=== PATIENT | female | born 1990 | race Caucasian/White ===

== ENCOUNTER 2016-07-10 12:09 | Emergency (ER) | payer MEDICAID ==
--- NOTE | 2016-07-10 12:29 | Emergency Department Record ---
History of Present Illness - General Chief complaint: Female Urogenital Problem Stated complaint: POSSIBLE STD Time Seen by Provider: 07/10/16 12:21 Source: Patient Mode of Arrival: Ambulatory - History of Present Illness Initial comments: 25 yo female presents with a concern about a Herpes or hep C exposure. She is asymptomatic. She does not know with any certainty if the other person has current or past disease. No personal STD history. No discharge or bleeding. no lesions. MD Complaint: Possible STD Onset/Timin -: Days(s) Location: Other (No symptoms) Severity: Mild Quality: Other Improves with: None Worsens with: None Associated Symptoms: Denies other symptoms - Related Data Home Medications Medication Instructions Recorded Confirmed Last Taken No Home Med [NO HOME MEDS] 07/10/16 07/10/16 Unknown Allergies Allergy/AdvReac Type Severity Reaction Status Date / Time No Known Drug Allergies Allergy Verified 06/24/15 12:15 Travel Screening - Travel/Exposure Within Last 30 Days Have you traveled within the last 30 days?: No Review of Systems Constitutional: Denies: Chills, Fever, Malaise, Weakness Eyes: Denies: Eye discharge ENT: Denies: Congestion, Throat pain Respiratory: Denies: Cough Cardiovascular: Denies: Chest pain, Palpitations, Syncope Endocrine: Denies: Fatigue Gastrointestinal: Denies: Abdominal pain, Diarrhea, Nausea, Vomiting Genitourinary: Denies: Discharge, Dysuria, Hematuria, Urgency Musculoskeletal: Denies: Arthralgia, Back pain, Myalgia Skin: Denies: Bruising, Change in color, Rash Past Medical History - SOCIAL HISTORY Smoking Status: Current every day smoker Alcohol Use: None Drug Use: None - RESPIRATORY Hx Respiratory Disorders: No - CARDIOVASCULAR Hx Cardio Disorders: No - NEURO Hx Neuro Disorders: No - GI Hx GI Disorders: No - Hx Genitourinary Disorders: No - ENDOCRINE Hx Endocrine Disorders: No Hx Diabetes: No Hx Thyroid Disease: No - MUSCULOSKELETAL Hx Musculoskeletal Disorders: No - PSYCH Hx Psych Problems: Yes Hx Anxiety: Yes Hx Depression: Yes - HEMATOLOGY/ONCOLOGY Hx Hematology/Oncology Disorders: No Family Medical History Any Significant Family History?: No Physical Exam - General General Appearance: Alert, Oriented x3, Cooperative, No acute distress - Head Head exam: Normal inspection - Eye Eye exam: Normal appearance, PERRL. negative: Conjunctival injection - ENT ENT exam: Normal exam Ear exam: Normal external inspection Nasal Exam: Normal inspection Mouth exam: Normal external inspection - Neck Neck exam: Normal inspection - Respiratory Respiratory exam: Normal lung sounds bilaterally. negative: Respiratory distress - Cardiovascular Cardiovascular Exam: Regular rate, Normal rhythm, Normal heart sounds - GI/Abdominal GI/Abdominal exam: Soft. negative: Tenderness - Rectal Rectal exam: Deferred - exam: Normal bimanual exam, Normal speculum exam. negative: Abnormal external exam, Adnexal mass (L), Adnexal mass (R), Adnexal tenderness (L), Adnexal tenderness (R), Cervical discharge, cervical motion tenderness, Vaginal bleeding, Vaginal discharge, Vaginal erythema - Extremities Extremities exam: Normal inspection - Back Back exam: Denies: CVA tenderness (R), CVA tenderness (L) - Neurological Neurological exam: Alert, Oriented X3. negative: Altered - Psychiatric Psychiatric exam: Normal affect, Normal mood. negative: Agitated, Anxious - Skin Skin exam: Dry, Intact, Normal color, Warm Course Vital Signs 07/10/16 12:13 Temperature 99.2 F Pulse Rate 93 H Respiratory 18 Rate Blood Pressure 109/71 Pulse Ox 98 - Reevaluation(s) Reevaluation #1: Wet prep is negative DC with instructions for possible STD exposure 07/10/16 13:25 Disposition Disposition: Discharge Clinical Impression: Possible exposure to STD Disposition: Home, Self-Care Condition: (1) Good Instructions: Sexually Transmitted Diseases (ED) Additional Instructions: you have cultures that will result in about 2-3 days return if you have pain, fever or concerns no unprotected sex without a condom until all your results are available follow up with your doctor for Hepatitis and HIV testing Forms: Patient Portal Access Time of Disposition: 13:09
[2016-07-10] MEDS ORDERED: CEFTRIAXONE 250 MG VIAL IM ONE (12:31)
[2016-07-10] MEDS ORDERED: AZITHROMYCIN 500 MG TABLET PO ONE (12:31)
[2016-07-10 13:11] LABS: URINE APPEARANCE CLEAR; URINE BILIRUBIN NEGATIVE (NEGATIVE); URINE BLOOD NEGATIVE (NEGATIVE); URINE COLOR YELLOW; URINE GLUCOSE (UA) NEGATIVE (NEGATIVE); URINE KETONE NEGATIVE (NEGATIVE); URINE LEUKOCYTE ESTERASE NEGATIVE (NEGATIVE); URINE NITRITE NEGATIVE (NEGATIVE); URINE PROTEIN NEGATIVE (NEGATIVE); URINE UROBILINOGEN 0.2 E.U./dL (0.20 - 1.00)
[2016-07-10 13:14] LABS: HCG,QUALITATIVE URINE NEGATIVE (NEGATIVE)
[2016-07-11 20:19] LABS: SPECIMEN TYPE Vaginal (())
[2016-07-13 15:15] LABS: GC SPECIMEN TYPE Vaginal (())
== END 2016-07-10 13:55 | disposition home or self-care (01) ==
LOC: ER 12:09
DX: Z20.2 Contact with and (suspected) exposure to infections with a predominantly sexual mode of transmission (principal)
CPT/HCPCS: 99284 ×2; 96372; 81003; 81025; Q0111; J0696; 87210

== ENCOUNTER 2016-12-22 19:03 | Emergency (ER) | payer MEDICAID ==
[2016-12-22] MEDS: LORAZEPAM 0.5 MG TABLET PO ONE (19:34)
--- NOTE | 2016-12-22 19:38 | Emergency Department Record ---
History of Present Illness - General Chief Complaint: Crisis Evaluation Stated Complaint: ANXIETY,DEPRESSION Time Seen by Provider: 12/22/16 19:31 Source: Patient Mode of Arrival: Ambulatory Limitations: No limitations - History of Present Illness Initial Comments: 26 yo female presents to for possible anxiety reaction/panic attack. Patient reports increased anxiety and depression over the past 1.5-2 weeks, reports that she started taking Celexa this morning (11:00 AM). Patient reports taking Celexa 3 years ago without side affects. Patient reports that she felt very shaky this evening, anxious, tearful, and had flashes of self harm that the patient reports have now resolved. Patient denies any thoughts of harming herself or suicidal thoughts currently on examination. Patient denies health problems at her baseline. MD Complaint: Feels depressed, Other (anxious) Onset/Timin -: Days(s) Associated Psychiatric Symptoms: Depression, Racing thoughts, Other History of same: Yes Quality: Intermittent Improves With: Therapy Context: New medication(s), Significant life stressor Associated Symptoms: Denies other symptoms Treatments Prior to Arrival: None - [place] Coma Scale Eye Response: (4) Open spontaneously Motor Response: (6) Obeys commands Verbal Response: (5) Oriented [place] Total: 15 - Related Data Home Medications Medication Instructions Recorded Confirmed Last Taken Citalopram Hydrobromide 20 mg PO DAILY 12/22/16 12/22/16 12/22/16 [Citalopram HBr] Previous Rx's Medication Instructions Recorded Lorazepam [Ativan] 0.5 mg PO Q6H PRN #5 tablet 12/22/16 Allergies Allergy/AdvReac Type Severity Reaction Status Date / Time No Known Drug Allergies Allergy Verified 06/24/15 12:15 Review of Systems Constitutional: Denies: Chills, Fever, Malaise, Night sweats Eyes: Denies: Eye discharge, Eye pain ENT: Denies: Congestion, Ear pain, Epistaxis Respiratory: Denies: Cough, Dyspnea Cardiovascular: Denies: Chest pain, Dyspnea on exertion Endocrine: Denies: Fatigue, Heat or cold intolerance Gastrointestinal: Denies: Abdominal pain, Nausea, Vomiting Genitourinary: Denies: Incontinence, Retention Musculoskeletal: Denies: Arthralgia, Back pain Skin: Denies: Bruising, Change in color Neurological: Denies: Abnormal gait, Confusion, Headache, Seizure Psychiatric: Denies: Anxiety Hematological/Lymphatic: Denies: Anemia, Blood Clots Past Medical History - SOCIAL HISTORY Smoking Status: Current every day smoker Alcohol Use: None Drug Use: None - RESPIRATORY Hx Respiratory Disorders: No - CARDIOVASCULAR Hx Cardio Disorders: No - NEURO Hx Neuro Disorders: No - GI Hx GI Disorders: No - Hx Genitourinary Disorders: No - ENDOCRINE Hx Endocrine Disorders: No Hx Diabetes: No Hx Thyroid Disease: No - MUSCULOSKELETAL Hx Musculoskeletal Disorders: No - PSYCH Hx Psych Problems: Yes Hx Anxiety: Yes Hx Depression: Yes - HEMATOLOGY/ONCOLOGY Hx Hematology/Oncology Disorders: No Family Medical History Any Significant Family History?: No Physical Exam - General General Appearance: Alert, Oriented x3, Cooperative, Mild distress, Anxious, Other (mildly tearful on examination) Limitations: No limitations - Head Head exam: Atraumatic, Normocephalic, Normal inspection Head exam detail: negative: Abrasion, Contusion, Hoff's sign, General tenderness, Hematoma, Laceration - Eye Eye exam: Normal appearance. negative: Conjunctival injection, Periorbital swelling, Periorbital tenderness, Scleral icterus - ENT Ear exam: negative: Auricular hematoma, Auricular trauma Nasal Exam: negative: Active bleeding, Discharge, Dried blood, Foreign body Mouth exam: negative: Drooling, Laceration, Muffled voice, Tongue elevation - Neck Neck exam: Normal inspection. negative: Meningismus, Tenderness - Respiratory Respiratory exam: Normal lung sounds bilaterally. negative: Rales, Respiratory distress, Rhonchi, Stridor - Cardiovascular Cardiovascular Exam: Regular rate, Normal rhythm, Normal heart sounds - GI/Abdominal GI/Abdominal exam: Soft. negative: Rebound, Rigid, Tenderness - Rectal Rectal exam: Deferred - exam: Deferred - Extremities Extremities exam: Normal inspection. negative: Calf tenderness, Pedal edema, Tenderness - Back Back exam: Denies: CVA tenderness (R), CVA tenderness (L) - Neurological Neurological exam: Alert, Normal gait, Oriented X3 - Psychiatric Psychiatric exam: Anxious, Other (Patient currently denies any suicidal thoughts or thoughts of self harm currently.). negative: Suicidal ideation - Skin Skin exam: Normal color. negative: Abrasion Type of lesion: negative: abrasion Course Vital Signs 12/22/16 19:13 Temperature 98.4 F Pulse Rate [ 81 Pulse Ox Probe] Respiratory 16 Rate Blood Pressure 126/88 [Left Arm] Pulse Ox 98 - Reevaluation(s) Reevaluation #1: 12/22/16 19:36 Patient seen and examined, currently denies any thoughts of self harm or suicidal thoughts, more feeling anxious and shaky. Will administer Ativan and reassess. Patient reports she does have an appointment with her counselor tomorrow as well. Reevaluation #2: 12/22/16 20:26 Patient reassessed and reports that she is feeling much better. Patient continues to deny any suicidal ideation or thoughts of self-harm. Patient appears stable for discharge at this time with instructions to follow-up with her counselor as scheduled tomorrow. Disposition Disposition: Discharge Clinical Impression: Anxiety Depression Qualifiers: Depression Type: unspecified Qualified Code(s): F32.9 - Major depressive disorder, single episode, unspecified Disposition: Home, Self-Care Condition: (2) Stable Instructions: Anxiety (ED) Additional Instructions: Return to ED if your symptoms worsen or reoccur, or if you have any concerns. Discontinue Celexa until you follow-up with your prescribing provider. Ativan as directed. Follow-up with your counselor tomorrow as scheduled. Prescriptions: Lorazepam [Ativan] 0.5 mg PO Q6H PRN #5 tablet PRN Reason: Anxiety Forms: Patient Portal Access Time of Disposition: 20:28 Quality - Quality Measures Quality Measures: N/A - Blood Pressure Screening Blood Pressure Classification: Pre-Hypertensive BP Reading Systolic Measurement: 126 Diastolic Measurement: 88 Screening for High Blood Pressure: < Pre-Hypertensive BP, F/U Documented > [ G8950] Pre-Hypertensive Follow-up Interventions: Referral to alternative/primary care provider.
== END 2016-12-22 20:39 | disposition home or self-care (01) ==
LOC: ER 19:03
DX: F32.9 Major depressive disorder, single episode, unspecified (principal); F41.1 Generalized anxiety disorder
CPT/HCPCS: 99283

== ENCOUNTER 2018-09-07 21:26 | Emergency (ER) | payer MEDICAID ==
--- NOTE | 2018-09-07 22:00 | Emergency Department Record ---
History of Present Illness - General Chief Complaint: Depression Stated Complaint: DEPRESSIOIN Time Seen by Provider: 09/07/18 21:28 Source: Patient Mode of Arrival: Ambulatory Limitations: No limitations Travel/Exposure to [place] Within 21 Days of Symptoms: No - History of Present Illness Initial Comments: 28 yo female presents to ED for evaluation of worsening depression symptoms for the past several weeks/months. Patient reports that her ability to cope at work has become increasingly compromised, and that she becomes easily tearful with mild interactions. Patient reports that she has been taking Wellbutrin for 3 years, does take Ativan rarely for anxiety symptoms. Patient was told that if her symptoms worsened to come to the ED for evaluation. Patient specifically denies any thoughts of self harm or thoughts of harming others. Patient also reports that she has an appointment with [facility] on September 19. MD Complaint: Feels depressed Onset/Timin -: Month(s) Associated Psychiatric Symptoms: None History of same: No Quality: Getting worse Improves With: None Worsens With: None Context: Unsure Associated Symptoms: Other Treatments Prior to Arrival: None - [place] Coma Scale Eye Response: (4) Open spontaneously Motor Response: (6) Obeys commands Verbal Response: (5) Oriented [place] Total: 15 - Related Data Home Medications Medication Instructions Recorded Confirmed Last Taken Bupropion HCl [Wellbutrin Xl] 300 mg PO DAILY 09/07/18 09/07/18 09/07/18 Cholecalciferol (Vitamin D3) 50,000 unit PO WEEKLY 09/07/18 09/07/18 09/01/18 [Vitamin D3] Previous Rx's Medication Instructions Recorded Lorazepam [Ativan] 0.5 mg PO Q6H PRN #5 tablet 12/22/16 Allergies Allergy/AdvReac Type Severity Reaction Status Date / Time No Known Drug Allergies Allergy Verified 06/24/15 12:15 Review of Systems Constitutional: Denies: Chills, Fever, Malaise, Night sweats Eyes: Denies: Eye discharge, Eye pain ENT: Denies: Congestion, Ear pain, Epistaxis Respiratory: Denies: Cough, Dyspnea Cardiovascular: Denies: Chest pain, Dyspnea on exertion Endocrine: Denies: Fatigue, Heat or cold intolerance Gastrointestinal: Denies: Abdominal pain, Nausea, Vomiting Genitourinary: Denies: Incontinence, Retention Musculoskeletal: Denies: Arthralgia, Back pain Skin: Denies: Bruising, Change in color Neurological: Denies: Abnormal gait, Confusion, Headache, Seizure Psychiatric: Reports: Anxiety, Depression. Denies: Auditory hallucinations, Homicidal thoughts, Suicidal thoughts Hematological/Lymphatic: Denies: Anemia, Blood Clots Past Medical History - SOCIAL HISTORY Smoking Status: Former smoker Alcohol Use: Occasional Drug Use: None - RESPIRATORY Hx Respiratory Disorders: No - CARDIOVASCULAR Hx Cardio Disorders: No - NEURO Hx Neuro Disorders: No - GI Hx GI Disorders: No - Hx Genitourinary Disorders: No - ENDOCRINE Hx Endocrine Disorders: No Hx Diabetes: No Hx Thyroid Disease: No - MUSCULOSKELETAL Hx Musculoskeletal Disorders: No - PSYCH Hx Psych Problems: Yes Hx Anxiety: Yes Hx Depression: Yes - HEMATOLOGY/ONCOLOGY Hx Hematology/Oncology Disorders: No Family Medical History Any Significant Family History?: No Family Hx Comment (NOT TO BE USED IN PLACE OF ITEMS BELOW): denies Physical Exam - General General Appearance: Alert, Oriented x3, Cooperative, Mild distress, Other ( Tearful on exmaination) Limitations: No limitations - Head Head exam: Atraumatic, Normocephalic, Normal inspection Head exam detail: negative: Abrasion, Contusion, Hoff's sign, General tenderness, Hematoma, Laceration - Eye Eye exam: Normal appearance. negative: Conjunctival injection, Periorbital swelling, Periorbital tenderness, Scleral icterus - ENT Ear exam: negative: Auricular hematoma, Auricular trauma Nasal Exam: negative: Active bleeding, Discharge, Dried blood, Foreign body Mouth exam: negative: Drooling, Laceration, Muffled voice, Tongue elevation - Neck Neck exam: Normal inspection. negative: Meningismus, Tenderness - Respiratory Respiratory exam: Normal lung sounds bilaterally. negative: Rales, Respiratory distress, Rhonchi, Stridor - Cardiovascular Cardiovascular Exam: Regular rate, Normal rhythm, Normal heart sounds - GI/Abdominal GI/Abdominal exam: Soft. negative: Rebound, Rigid, Tenderness - Rectal Rectal exam: Deferred - exam: Deferred - Extremities Extremities exam: Normal inspection. negative: Pedal edema, Tenderness - Back Back exam: Denies: CVA tenderness (R), CVA tenderness (L) - Neurological Neurological exam: Alert, Normal gait, Oriented X3 - Psychiatric Psychiatric exam: Depressed - Skin Skin exam: Normal color. negative: Abrasion Type of lesion: negative: abrasion Course Vital Signs 09/07/18 21:30 Temperature 97.9 F Pulse Rate 110 H Respiratory 16 Rate Blood Pressure 120/86 Pulse Ox 97 - Reevaluation(s) Reevaluation #1: 09/07/18 21:57 Patient was seen and examined, specifically denies any SI/HI on examination with both myself and nursing staff when asked. There is no clear indication for involuntary hospitalization based on my examination of the patient. Will contact the patient's on-call provider to arrange for close follow-up for possible medication change or addition of another anti-depressant in treatment of the patient's depression symptoms. Reevaluation #2: 09/07/18 22:09 Case was discussed with the on-call provider Dr. Clavert, he is in agreement with having the patient call tomorrow for a follow-up appointment in 1-3 days as directed. Patient is in agreement with the plan of care as discussed. Disposition Disposition: Discharge Clinical Impression: Chronic depression Disposition: Home, Self-Care Condition: (2) Stable Instructions: Depression (ED) Additional Instructions: Return to ED if your symptoms worsen or if you have any concerns. Follow-up with your family doctor in 1-3 days as directed, call in AM for an appointment. Forms: Patient Portal Access Time of Disposition: 22:10 Quality - Quality Measures Quality Measures: N/A - Blood Pressure Screening Does Patient Have Any of the Following: No Blood Pressure Classification: Pre-Hypertensive BP Reading Systolic Measurement: 120 Diastolic Measurement: 86 Screening for High Blood Pressure: < Pre-Hypertensive BP, F/U Documented > [ G8950] Pre-Hypertensive Follow-up Interventions: Referral to alternative/primary care provider.
== END 2018-09-07 22:23 | disposition home or self-care (01) ==
LOC: ER 21:26
DX: F32.9 Major depressive disorder, single episode, unspecified (principal); Z87.891 Personal history of nicotine dependence
CPT/HCPCS: 99283